=== PATIENT | male | born 1975 ===

== ENCOUNTER 2024-09-02 07:59 | Day surgery (SDC) | payer MEDICARE ==
[~2024-09-02] VITALS: Ht 180.3 cm; Wt 156.3 kg
[~2024-09-02 07:59] MED LIST: ALBU90OI INH; ATOR80 PO; BUSP10 PO; CARB200 PO; CARV25 PO; DECADRON6 M1 PO; DOCU100 PO; FLUV50 PO; HYDR10 PO; LEVOTHYROXINE50 MC9 PO; LINZESS145 MCG PO; LISI20 PO; Lactated Ringer's 1,000 ML IV SCH; MIRALAX17 GM PO; RISP4 PO; SENNA LAXATIVE8.6 MG PO; SODCHL1 PO; SPIR50 PO
[2024-09-02 08:33] VITALS: BP 126/77
--- NOTE | 2024-09-02 08:46 | NUR ---
Ambulatory in Day Surgery History, Chart, Medications and Allergies reviewed before start of procedure. Pre-Op teaching done. Pt verbalizes understanding. Patient States Post-Procedure ride home has been arranged.
[2024-09-02] MEDS ORDERED: propofoL 50 ML IV ONE (08:54)
--- NOTE | 2024-09-02 09:16 | NUR ---
09/02/24 0916 Flower Tracey History, Chart, Medications and Allergies reviewed before start of procedure. SCAR PROVIDING ANESTHESIA
[2024-09-02] MEDS ORDERED: propofoL 20 ML IV ONE (09:18)
[2024-09-02 09:43] VITALS: BP 111/77
--- NOTE | 2024-09-02 10:01 | NUR ---
Ambulatory in Day Surgery WITH STEADY GAIT. Discharge instructions reviewed with patient. Patient verbalizes understanding. Copy given to patient to take home. Discharged via wheelchair to private car for ride home WITH BROTHER. TAKEN TO VEHICLE VIA VOLUNTEER. BELONGINGS RETURNED TO PT.
== END 2024-09-02 10:02 | disposition home or self-care (01) ==
LOC: ORSCMMR 07:59 → ORD 09:30 → ORSCMMR 10:02 → ORD 11-18 09:00
DX: R19.4 Change in bowel habit (principal); R10.13 Epigastric pain; Z86.0102 Personal history of hyperplastic colon polyps; K29.50 Unspecified chronic gastritis without bleeding; K63.5 Polyp of colon; D12.4 Benign neoplasm of descending colon; K57.30 Diverticulosis of large intestine without perforation or abscess without bleeding; J44.9 Chronic obstructive pulmonary disease, unspecified; G47.33 Obstructive sleep apnea (adult) (pediatric); I10 Essential (primary) hypertension; K21.9 Gastro-esophageal reflux disease without esophagitis; E66.9 Obesity, unspecified; Z68.42 Body mass index [BMI] 45.0-49.9, adult; E13.8 Other specified diabetes mellitus with unspecified complications; Z79.899 Other long term (current) drug therapy
CPT/HCPCS: 82947; 88305; 88342; J2704; J7120